=== PATIENT | female | born 1965 | race Hispanic/Latino ===

== ENCOUNTER 2019-04-07 09:43 | Emergency (ER) | payer SELFPAY ==
[2019-04-07 10:08] VITALS: BP 110/66; PULSE 76; RESP 16; TEMP 37.1; O2SAT 99
--- NOTE | 2019-04-07 11:07 | ED.GENADULT ---
HPI - General Adult General Chief complaint: Upper Respiratory Infection Stated complaint: Sore Throat/Fever/SOB Time Seen by Provider: 04/07/19 11:07 Source: patient and RN notes reviewed Mode of arrival: ambulatory Limitations: no limitations History of Present Illness HPI narrative: 53-year-old female complains of upper respiratory infection, facial congestion, and facial pain cough, and intermittent dyspnea with coughing episodes for the past 2 weeks. Increase symptoms over the past 4-5 days with tactile fever, sore throat, and RT ear pain. Nyquil without relief. No facial swelling. Dry cough, intermittent dyspnea with coughing episodes, intermittent productive cough (yellow phlegm). Rhinorrhea and nasal congestion. Sore throat. Pain bilateral. No high fevers, drooling, neck or throat swelling. No ear drainage, itching, tinnitus, or trauma. No chest pain. Exacerbation factors consists of current work environment per Johanna. Denies nausea, vomiting, and abdominal pain. Tolerating liquids well. Johanna denies being , Postmenopausal. Some parts of this dictation were generated by voice recognition software and may contain typographical and/or grammatical inaccuracies. Related Data Allergies Allergy/AdvReac Type Severity Reaction Status Date / Time No Known Allergies Allergy Verified 11/14/18 21:19 Review of Systems Review of Systems: Narrative: CONSTITUTIONAL: Compains tactile fever. Denies chills, sweats. EYES: Denies visual changes, redness, discharge. ENT: Complains of rhinorrhea, congestion, facial congestion and pressure, sore throat, RT otalgia. CARDIOVASCULAR: Denies chest pain, palpitations, edema. RESPIRATORY: Denies wheezing. Complains of dry cough, intermittent dyspnea with coughing episodes, intermittent productive cough. GASTROINTESTINAL: Denies abdominal pain, nausea, vomiting, diarrhea. GENITOURINARY: Denies dysuria, hematuria, abnormal discharge. SKIN: Denies rash or itching. MUSCULOSKELETAL: Denies acute back pain, joint pain, or myalgia. NEUROLOGIC: Denies numbness or focal weakness. PSYCHIATRIC: Denies anxiety or depression. All systems reviewed & are unremarkable except as noted in HPI and below. FORMERLY [facility], [facility] Social History Social History Smoking status: Never smoker Second hand tobacco smoke exposure: No Alcohol intake: never Substance use: never Gender identity (if verbalized by the patient): Female Comments At time of signature, agree with nurse past medical, surgical, social, and family history. There is no relevant family history pertinent to the presenting complaint. Exam Narrative: Exam Narrative: GENERAL: This is a well-nourished, well-developed patient, in no apparent distress. Talks in full sentences and ambulates with steady gait without dyspnea. HEAD: normocephalic, atraumatic. EYES: PERRL. Sclera clear/white. Vision is grossly intact. EARS: External ears normal, auditory canals clear and without drainage, LT TM normal without perforation. RT TM with mild effusion no erythema, bulging, drainage, or tenderness with manipulation. Hearing grossly intact. NOSE: External nose normal with no obvious nasal discharge, nares with moderate redness and enlarge turbinates, no rhinorrhea. SINUSES: Mild-moderate tenderness upon palpation to maxillary sinus. THROAT: Mucous membranes moist, posterior pharynx with PND, mild erythema, exudate, and normal tonsils. No drainage, no concern for Peritonsillar abscess. No drooling, trismus, or neck swelling. NECK: Neck supple, non-tender without lymphadenopathy, masses or thyromegaly. CARDIOVASCULAR: Regular rate and rhythm without murmurs, gallops, or rubs. RESPIRATORY: Clear to auscultation. Breath sounds equal bilaterally. No wheezes, rales, or rhonchi. GASTROINTESTINAL: Abdomen soft, non-tender, nondistended. Bowel sounds are active. No hepato-splenomegaly, or palpable masses. No guardi
== END 2019-04-07 11:22 | disposition home or self-care (01) ==
PROVIDERS: Emergency Provider Nurse Practitioner Family
DX: J01.00 Acute maxillary sinusitis, unspecified (principal)
CPT/HCPCS: 99213; G0463

== ENCOUNTER 2019-04-12 20:56 | Emergency (ER) | payer SELFPAY ==
--- NOTE | ~2019-04-12 | XR_ITS ---
EXAMINATION: XR chest 2V 04/12/2019 21:34 INDICATION: Reductive cough. Mid chest pain. PROCEDURE: Two-view chest COMPARISON: 11/14/2016 FINDINGS: The lungs are clear. The cardiomediastinal silhouette is within normal limits. There are no pleural effusions. There is no pneumothorax suspected. IMPRESSION: 1: NO ACUTE CARDIOPULMONARY DISEASE. Reviewed, dictated and finalized at location [facility]. [facility]
[2019-04-12 20:58] VITALS: BP 164/94; PULSE 74; RESP 16; TEMP 36.9; O2SAT 99
[2019-04-12 23:32] VITALS: BP 129/80; PULSE 62; RESP 16; O2SAT 97
[2019-04-12 23:38] VITALS: O2SAT 98
--- NOTE | 2019-04-12 23:39 | ED.GENADULT ---
HPI - General Adult General Chief complaint: Upper Respiratory Infection Stated complaint: cough/congestion Time Seen by Provider: 04/12/19 23:38 Source: patient and family (Daughter is translating) Mode of arrival: ambulatory Limitations: language barrier History of Present Illness HPI narrative: Patient came in today because she has a feeling of not being able to breathe at home. She has been being treated with amoxicillin and prednisone for an upper respiratory infection, she states that she has not taken the prednisone for the last 2 days because she felt like it was making her short of breath. Today she was just sitting on her couch watching TV when she suddenly became short of breath. 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 Onset (ago): day(s) Radiation: non-radiation Associated symptoms: cough Treatments prior to arrival: none Related Data Allergies Allergy/AdvReac Type Severity Reaction Status Date / Time No Known Allergies Allergy Verified 11/14/18 21:19 Review of Systems Review of Systems: All systems reviewed & are unremarkable except as noted in HPI and below PMFSH Past Medical History Medical History No significant past medical history Surgical History Surgical History No significant past surgical history Family History Family History Mother Asthma Social History Social History Smoking status: Never smoker Second hand tobacco smoke exposure: No Alcohol intake: never Substance use: never Gender identity (if verbalized by the patient): Female Exam Const: General: no acute distress and alert Orientation/consciousness: patient oriented x3 HENMT: Ears: TM's normal bilaterally General nose exam: Normal nares present Mouth: Yes moist mucous membranes Eyes: Conjunctivae: conjunctivae normal Pupils: Equal, round and reactive pupils present Resp: Effort & Inspection: normal respiratory effort Auscultation: clear to auscultation bilaterally and diminished lung sounds bilateral Cardio: Rate: regular rate Rhythm: regular rhythm GI: GI Palp: Yes Soft to palpation Skin: General skin exam: normal color Rashes: no rashes Extrem: General: normal to inspection Psych: Mental Status: mental status grossly normal Course Course Emergency Course: Patient feels much better after getting the albuterol treatment. Recommended that she can stop the steroids that she has been treated for 5 days. Continue the antibiotics as prescribed to complete the course. Also recommend that she try to wear a mask when she is working to protect her from the dust. Vital Signs Vital signs: Vital Signs Temperature 36.9 C 04/12/19 20:58 Pulse Rate 74 04/12/19 20:58 Respiratory Rate 16 04/12/19 20:58 Blood Pressure 164/94 H 04/12/19 20:58 Pulse Oximetry 99 04/12/19 20:58 Temperature 36.9 C 04/12/19 20:58 Pulse Rate 62 04/12/19 23:32 Respiratory Rate 16 04/12/19 23:32 Blood Pressure 129/80 04/12/19 23:32 Pulse Oximetry 97 04/12/19 23:32 Medical Decision Making Vital Signs Vital Signs: Vital Signs Temperature 36.9 C 04/12/19 20:58 Pulse Rate 74 04/12/19 20:58 Respiratory Rate 16 04/12/19 20:58 Blood Pressure 164/94 H 04/12/19 20:58 Pulse Oximetry 99 04/12/19 20:58 Temperature 36.9 C 04/12/19 20:58 Pulse Rate 62 04/12/19 23:32 Respiratory Rate 16 04/12/19 23:32 Blood Pressure 129/80 04/12/19 23:32 Pulse Oximetry 97 04/12/19 23:32 Lab Data Labs: Influenza A Screen Negative Reference Range: Negative Influenza B Screen Negative Reference Range: Negative Strep Screen Presum
--- NOTE | 2019-04-12 23:45 | PC.NURSE ---
Pt states she thinks the medication she started from urgent care is making her S.O.B.
[2019-04-13 00:27] VITALS: PULSE 74; RESP 16
[2019-04-13] MEDS: ALBUTEROL SULFATE NEB 2.5 MG/3 ML INH INHALATION (00:27)
[2019-04-13 00:34] VITALS: PULSE 69; RESP 20
[2019-04-13 01:48] VITALS: BP 116/81; PULSE 68; RESP 12; O2SAT 98
== END 2019-04-13 01:45 | disposition home or self-care (01) ==
PROVIDERS: Emergency Provider Emergency Medicine
DX: J06.9 Acute upper respiratory infection, unspecified (principal)
CPT/HCPCS: 71046; 87081; 87804; 87880; 94640; 99283

== ENCOUNTER 2019-09-25 20:58 | Emergency (ER) | payer SELFPAY ==
[2019-09-25 21:01] VITALS: BP 147/90; PULSE 74; RESP 16; TEMP 36.8; O2SAT 100
[2019-09-25 21:59] VITALS: BP 142/92; PULSE 81; RESP 18; TEMP 36.6; O2SAT 97
--- NOTE | 2019-09-25 22:06 | ED.EAR ---
HPI - Ear Problem General Chief complaint: Ear Stated complaint: R EAR PAIN Time Seen by Provider: 09/25/19 21:52 Source: RN notes reviewed History of Present Illness HPI Narrative: Patient presents emergency department from home for right ear pain. Patient states pain began yesterday. The pain is located in the right ear and radiates into the right side of the face. She denies any fevers or chills rhinorrhea sore throat or any other symptoms. States she has been using [id number] eardrops with minimal relief and took Tylenol earlier today. Related Data Allergies Allergy/AdvReac Type Severity Reaction Status Date / Time No Known Allergies Allergy Verified 09/25/19 21:56 Review of Systems Review of Systems: Narrative: Gen.: Denies fevers or chills Eyes: Denies eye pain or visual change ENT: See HPI Respiratory: Denies shortness of breath or cough CV: Denies chest pain or palpitations GI: Denies abdominal pain nausea, emesis Musculoskeletal: Denies back pain or muscle pain Neuro: Denies numbness, tingling, weakness or focal weakness Skin: Denies rash Except as documented, all other systems reviewed and negative [facility] Past Medical History Medical History No significant past medical history Social History Social History Smoking status: Never smoker Second hand tobacco smoke exposure: No Alcohol intake: never Substance use: never Gender identity (if verbalized by the patient): Female Exam Narrative: Exam Narrative: APPEARANCE: No acute distress, nontoxic, resting in bed EYES: EOMI HEENT: Normocephalic, atraumatic, left TM is normal right TM is erythematous, there is no swelling of the ear canal mild tenderness with speculum exam there is no tenderness over the face nares patent oromucosa moist erythematous a posterior pharynx, no overlying rash RESPIRATORY: No respiratory distress Clear to auscultation bilaterally with no rhonchi wheezing or rales. CARDIOVASCULAR: Regular rate and rhythm without murmurs rubs or gallops. ABDOMINAL: Soft, nontender, MUSCULOSKELETAl: Moves all extremities. No clubbing, cyanosis or edema. NEURO: Awake and alert. Following commands, speech normal, no focal deficits SKIN:: Warm, dry. No rashes lesions or abrasions PSYCHIATRIC: Normal affect/mood, Course Course Emergency Course: Discussed with patient results of workup and diagnosis. Discussed need for follow-up with primary care, proper use of medication, and reasons to return to the emergency department. Patient understands and agrees to current treatment plan Vital Signs Vital signs: Vital Signs Temperature 98.3 F 09/25/19 21:01 Pulse Rate 74 09/25/19 21:01 Respiratory Rate 16 09/25/19 21:01 Blood Pressure 147/90 H 09/25/19 21:01 Pulse Oximetry 100 09/25/19 21:01 Temperature 97.8 F 09/25/19 21:59 Pulse Rate 81 09/25/19 21:59 Respiratory Rate 18 09/25/19 21:59 Blood Pressure 142/92 H 09/25/19 21:59 Pulse Oximetry 97 09/25/19 21:59 Medical Decision Making Vital Signs Vital Signs: Vital Signs Temperature 98.3 F 09/25/19 21:01 Pulse Rate 74 09/25/19 21:01 Respiratory Rate 16 09/25/19 21:01 Blood Pressure 147/90 H 09/25/19 21:01 Pulse Oximetry 100 09/25/19 21:01 Temperature 97.8 F 09/25/19 21:59 Pulse Rate 81 09/25/19 21:59 Respiratory Rate 18 09/25/19 21:59 Blood Pressure 142/92 H 09/25/19 21:59 Pulse Oximetry 97 09/25/19 21:59 Discharge Plan Discharge Clinical Impression: Acute right otitis media Patient Disposition: Home, Self-Care Condition: Stable Instructions: Antibiotic Form, Ear Infection (ED) Additional Instructions: Return for increasing pain, fever or any other symptoms of concern Prescriptions: New ibuprofen [IBU] 600 mg tablet 600 mg PO Q6H PRN (Reason: pain) Qty: 20 RF: 0 amoxicillin-pot c
[2019-09-25] MEDS: IBUPROFEN 600 MG TABLET PO (22:09)
[2019-09-25] MEDS: AMOXICILLIN/CLAVULANATE K 875-125 MG TAB 1 TABLET PO (22:09)
== END 2019-09-25 22:24 | disposition home or self-care (01) ==
PROVIDERS: Emergency Provider Emergency Medicine
DX: H66.91 Otitis media, unspecified, right ear (principal)
CPT/HCPCS: 99283; A9270

== ENCOUNTER 2019-09-27 15:39 | Emergency (ER) | payer SELFPAY ==
[2019-09-27 15:56] VITALS: BP 152/87; PULSE 74; RESP 16; TEMP 36.6; O2SAT 100
--- NOTE | 2019-09-27 16:14 | ED.GENADULT ---
HPI - General Adult General Chief complaint: Ear Stated complaint: Ear pain Time Seen by Provider: 09/27/19 16:14 Source: patient Mode of arrival: ambulatory Limitations: no limitations History of Present Illness HPI narrative: 53-year-old female patient presents to the [facility] with complaints of right-sided facial pain. Patient states she was seen in the [place] emergency department on Friday for an ear infection was given a prescription for Augmentin. Patient states that the pain continues to worsen and now she feels like the right side of her face is very hard. 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 Patient denies any injury or falling that she is aware of. Denies any weakness of one side of the body or the other. Related Data Allergies Allergy/AdvReac Type Severity Reaction Status Date / Time No Known Allergies Allergy Verified 09/27/19 16:28 Review of Systems Review of Systems: Narrative: CONSTITUTIONAL: Denies fever, chills, or sweats. EYES: Denies visual changes, redness, or discharge. ENT: Denies rhinorrhea, congestion, sore throat, or otalgia. Positive right-sided facial pain and right ear pain CARDIOVASCULAR: Denies chest pain, palpitations, or edema. RESPIRATORY: Denies cough or dyspnea. GASTROINTESTINAL: Denies abdominal pain, nausea, vomiting, or diarrhea. GENITOURINARY: Denies dysuria or hematuria. SKIN: Denies rash or itching. MUSCULOSKELETAL: Denies back pain, joint pain, or myalgia. NEUROLOGIC: Denies headache, numbness, or weakness. PSYCHIATRIC: Denies anxiety or depression. FORMERLY [facility] Past Medical History Medical History (Updated 09/27/19 @ 16:29 by ASHLEE Bear) Hernandez's palsy Left side No significant past medical history Surgical History Surgical History No significant past surgical history Family History Family History Mother Asthma Social History Social History Smoking status: Never smoker Second hand tobacco smoke exposure: No Alcohol intake: never Substance use: never Gender identity (if verbalized by the patient): Female Comments At the time of my signature I agree with nursing past medical history, surgical, social, and family history. There is no relevant family history pertinent to the presenting complaint. Exam Narrative: Exam Narrative: GENERAL: Well-appearing, well-nourished, and in no acute distress. HEAD: Normocephalic, atraumatic. EYES: PERRLA and EOM intact without limitation or complaint of pain, no periorbital soft tissue swelling ,no erythema, warmth or tenderness noted, no obvious deformity. No crusting or swelling.no tearing or draining.No photophobia. No nystagmus No FB or lesion on lid eversion. Corneas grossly clear, no obvious FB or hyphens/hypopyon. No injection to sclera. Lids and lashes clear. Patient unable to lift the right eyebrow and unable to close the right eye ENT: Nares clear, no rhinorrhea or epistaxis. Mucous membranes moist. Posterior pharynx with no erythema, tonsil enlargement, exudates or lesions present. No obvious erythema to bilateral TMs. Patient unable to raise the corner of the right side of the mouth. NECK: Supple. No lymphadenopathy CHEST: Clear to auscultation. No respiratory distress. HEART: Regular rate and rhythm. No murmur heard. Normal peripheral pulses. ABDOMEN: Soft, nontender, nondistended, normal active bowel sounds. EXTREMITIES: Normal range of motion. No edema. SKIN: Warm, dry, no rash. NEURO: Alert and oriented x4, GCS 15. Patient has right-sided facial droop as well as unable to close the right eye or raise the right eyebrow. Normal muscle strength and tone. Normal deep tendon reflexes. Negative Babinski, normal finger to nose coordination he had normal heel to mackenzie glide. Speech is clear. Normal gait. Negativ
== END 2019-09-27 16:25 | disposition short-term general hospital (02) ==
PROVIDERS: Emergency Provider Nurse Practitioner Family
DX: G51.0 Bell's palsy (principal)
CPT/HCPCS: 99212; G0463

== ENCOUNTER 2019-09-27 16:42 | Emergency (ER) | payer SELFPAY ==
[2019-09-27 16:48] VITALS: BP 161/93; PULSE 93; RESP 16; TEMP 36.2; O2SAT 100
--- NOTE | 2019-09-27 17:55 | ED.GENADULT ---
HPI - General Adult General Chief complaint: Unspecified Stated complaint: rt facial paralysis and pain Time Seen by Provider: 09/27/19 17:06 History of Present Illness HPI narrative: Patient is a 53-year-old Syriac-speaking female who presents the ER with her daughter for evaluation. Several days ago patient was diagnosed with a ear infection of the right ear. She has been on Augmentin. Since then she has developed paralysis of her right face including her forehead/eyelids, mouth. Her ear pain is gone away but she started having pain along the sternocleidomastoid of her mid cervical region. No range of motion difficulty. No pain over the mastoid. No redness or swelling. No difficulty hearing. Denies numbness or tingling to the face. No new rash. 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 Related Data Allergies Allergy/AdvReac Type Severity Reaction Status Date / Time No Known Allergies Allergy Verified 09/27/19 16:54 Review of Systems Constitutional: Constitutional: Denies chills and Denies fever(s) ENT: Denies nasal congestion and Denies sore throat Comments: No change in hearing or ear pain mild right neck discomfort PMFSH Past Medical History Medical History (Updated 09/27/19 @ 18:00 by Manjit Parnell MD) Hernandez's palsy Left side No significant past medical history Surgical History Surgical History No significant past surgical history Social History Social History Smoking status: Never smoker Second hand tobacco smoke exposure: No Alcohol intake: never Substance use: never Gender identity (if verbalized by the patient): Female Exam Narrative: Exam Narrative: GENERAL: Well-appearing, well-nourished, and in no acute distress. HEAD: Normocephalic, atraumatic. EYES: PERRL and EOMI. ENT: Mucous membranes moist. Right facial paralysis of the forehead eyelids, and right mouth/cheek. Unable to fully close eyes, lift eyebrows, or smile. Tympanic membranes normal bilaterally. Neck: Full range of motion, no large palpable lymphadenopathy to anterior cervical chain or posterior auricular regions. There is mild tenderness of the right sternocleidomastoid without any evidence of swelling or redness. EXTREMITIES: Normal range of motion. No edema. SKIN: Warm, dry, no rash. NEURO: Alert and oriented x3. PSYCH: Normal mood and affect. Course Course Emergency Course: Suspect neck discomfort is related to deeper lymphadenopathy reactivity that is causing Hernandez's palsy. Will start on prednisone, continue Augmentin, will also placed on valacyclovir. Discussed need for eye protection and eye lubrication as well. Patient verbalized understanding.. Vital Signs Vital signs: Vital Signs Temperature 97.2 F L 09/27/19 16:48 Pulse Rate 93 09/27/19 16:48 Respiratory Rate 16 09/27/19 16:48 Blood Pressure 161/93 H 09/27/19 16:48 Pulse Oximetry 100 09/27/19 16:48 Temperature 97.2 F L 09/27/19 16:48 Pulse Rate 93 09/27/19 16:48 Respiratory Rate 16 09/27/19 16:48 Blood Pressure 161/93 H 09/27/19 16:48 Pulse Oximetry 100 09/27/19 16:48 Medical Decision Making Vital Signs Vital Signs: Vital Signs Temperature 97.2 F L 09/27/19 16:48 Pulse Rate 93 09/27/19 16:48 Respiratory Rate 16 09/27/19 16:48 Blood Pressure 161/93 H 09/27/19 16:48 Pulse Oximetry 100 09/27/19 16:48 Temperature 97.2 F L 09/27/19 16:48 Pulse Rate 93 09/27/19 16:48 Respiratory Rate 16 09/27/19 16:48 Blood Pressure 161/93 H 09/27/19 16:48 Pulse Oximetry 100 09/27/19 16:48 Discharge Plan Discharge Clinical Impression: Hernandez's palsy Patient Disposition: Home, Self-Care Condition: Stable Instructions: Antibiotic Form, Hernandez Palsy (ED) Additional Instructions: Return the ER if you have worsening pain in your ear neck, you cannot breathe, y
[2019-09-27 18:32] VITALS: BP 138/78; PULSE 78; RESP 18; O2SAT 99
== END 2019-09-27 18:34 | disposition home or self-care (01) ==
PROVIDERS: Emergency Provider Emergency Medicine
DX: G51.0 Bell's palsy (principal)
CPT/HCPCS: 99283

== ENCOUNTER 2020-09-09 16:16 | Emergency (ER) | payer SELFPAY ==
[2020-09-09 16:23] VITALS: BP 114/73; PULSE 75; RESP 16; TEMP 36.6; O2SAT 99
--- NOTE | 2020-09-09 16:29 | ED.EAR ---
HPI - Ear Problem General Chief complaint: Ear Stated complaint: ITCHY EAR Time Seen by Provider: 09/09/20 16:29 Source: patient and RN notes reviewed Mode of arrival: ambulatory Limitations: no limitations History of Present Illness HPI Narrative: 54-year-old female presents to the [facility] with complaints of right ear itchiness and discomfort. States a week ago she was swimming in [employer] and started having issues with both ears 2 days later and started using swimmers ear eardrops which made the left one better however the right one is itchy. Denies any sinus issues. No fevers. No chest pain or shortness of breath. No abdominal pain. Using daughter for translation however patient does understand. Related Data Allergies Allergy/AdvReac Type Severity Reaction Status Date / Time No Known Allergies Allergy Verified 09/09/20 16:35 Review of Systems Review of Systems: All systems reviewed & are unremarkable except as noted in HPI and below Constitutional: Constitutional: Reports no additional constitutional complaints, Denies chills and Denies fever(s) Eyes: Eyes: Reports no additional eye complaints ENT: Reports as per HPI Comments: Right-sided itchy ear, left is better Cardiovascular: Cardiovascular: Reports no additional cardiovascular complaints and Denies chest pain Respiratory: Respiratory: Reports no additional respiratory complaints, Denies cough and Denies dyspnea Musculoskeletal: Musculoskeletal: Reports no additional musculoskeletal complaints Integumentary/Breasts: Skin/Breast: Reports system reviewed and no additional complaints, except as docu Neurologic: Reports system reviewed and no additional complaints, except as documented Psychiatric: Psychiatric: Reports no additional psychiatric complaints Allergic/Immunologic: Allergic/Immunologic: Reports no additional allergic/immunologic complaints [facility] Past Medical History Medical History (Updated 09/09/20 @ 16:36 by Selene Gates) Hernandez's palsy Left side No significant past medical history Surgical History Surgical History No significant past surgical history Family History Family History Mother Asthma Social History Social History Smoking status: Never smoker Second hand tobacco smoke exposure: No Alcohol intake: never Substance use: never Gender identity (if verbalized by the patient): Female Comments At the time of my signature, I reviewed and agree with the nursing past medical, surgical, social, and family history. There is no relevant family history pertinent to the patient complaint. Exam Const: General: no acute distress and alert Nutritional Appearance: well nourished Orientation/consciousness: patient oriented x3 Limitations: no limitations HENMT: Ears: hearing grossly normal bilaterally, external ears normal, TM's normal bilaterally, Abnormal EAC present erythema on the left and EAC tenderness on the left and no periauricular adenopathy General nose exam: Normal external nose present, Normal nares present and Normal nasal mucous membranes and turbinates present Face and sinus: normal facial exam and sinuses nontender Mouth: Yes Normal oral and palatal mucosa present Eyes: Conjunctivae: conjunctivae normal Pupils: Equal, round and reactive pupils present Neck: Neck: normal visual inspection, no lymphadenopathy and no meningeal signs Chest: Chest palpation & inspection: normal inspection of the chest Resp: Effort & Inspection: normal respiratory effort Auscultation: clear to auscultation bilaterally Cardio: Rate: regular rate Rhythm: regular rhythm Back/Spine/Pelvis: Back: no CVA tenderness Skin: General skin exam: normal color Rashes: no rashes Wounds: no wounds Neuro: General: patient oriented x3, moves all extremities, no meningeal signs
== END 2020-09-09 16:41 | disposition home or self-care (01) ==
PROVIDERS: Emergency Provider Nurse Practitioner
DX: H60.331 Swimmer's ear, right ear (principal)
CPT/HCPCS: 99213; G0463

== ENCOUNTER 2021-05-21 11:06 | Emergency (ER) | payer SELFPAY ==
--- NOTE | 2021-05-21 11:14 | ED.URI ---
HPI - URI/Sore Throat General Chief Complaint: Upper Respiratory Infection Stated Complaint: Congestion Time Seen by Provider: 05/21/21 11:14 Source: patient, family, RN notes reviewed and old records reviewed Mode of arrival: ambulatory Limitations: no limitations and language barrier (Offered Bulgarian speaking park interpreter, patient declined wanted to use family member at bedside) History of Present Illness HPI Narrative: 55-year-old female presents to the [facility] with complaints of cough, congestion for approximately 1 week. Reports feeling febrile but did not take her temperature the first 2 days. Has had a productive cough with green phlegm. Reports taking a Covid test at home which she reports was negative. Denies chest pain or abdominal pain. No treatment prior to arrival MD elicited complaint: cough Related Data Allergies Allergy/AdvReac Type Severity Reaction Status Date / Time No Known Allergies Allergy Verified 05/21/21 11:10 Review of Systems Review of Systems: All systems reviewed & are unremarkable except as noted in HPI and below Constitutional: Constitutional: Reports as per HPI, Denies chills, Reports fever(s) (Subjective a week ago) and Denies headache(s) Eyes: Eyes: Reports no additional eye complaints ENT: Reports as per HPI, Denies vertigo, Denies dizziness, Denies headache(s), Denies nasal congestion and Denies sore throat Cardiovascular: Cardiovascular: Reports no additional cardiovascular complaints, Denies chest pain, Denies syncope, Denies rapid heart rate and Denies dyspnea Respiratory: Respiratory: Reports as per HPI, Reports cough, Denies dyspnea and Denies wheezing Gastrointestinal: Gastrointestinal: Reports no additional gastrointestinal complaints, Denies abdominal pain, Denies diarrhea, Denies nausea and Denies vomiting Musculoskeletal: Musculoskeletal: Reports as per HPI, Reports myalgias and Denies numbness Integumentary/Breasts: Skin/Breast: Reports system reviewed and no additional complaints, except as docu Neurologic: Reports system reviewed and no additional complaints, except as documented, Denies vertigo, Denies dizziness, Denies syncope, Denies headache(s), Denies focal weakness and Denies numbness Psychiatric: Psychiatric: Reports no additional psychiatric complaints Allergic/Immunologic: Allergic/Immunologic: Reports no additional allergic/immunologic complaints and Denies wheezing PMFSH Past Medical History Medical History Hernandez's palsy Left side No significant past medical history Surgical History Surgical History No significant past surgical history Family History Family History Mother Asthma Social History Social History Smoking status: Never smoker Second hand tobacco smoke exposure: No Alcohol intake: never Substance use: never Gender identity (if verbalized by the patient): Female Comments At the time of my signature, I reviewed and agree with the nursing past medical, surgical, social, and family history. There is no relevant family history pertinent to the patient complaint. Exam Const: General: cooperative, healthy appearing, no acute distress, well developed and alert Nutritional Appearance: well nourished Orientation/consciousness: patient oriented x3 Limitations: no limitations HENMT: Head: normal to inspection Ears: external ears normal, TM's normal bilaterally and EAC's normal General nose exam: Normal external nose present, Normal nasal mucous membranes and turbinates present and No nasal discharge present Face and sinus: normal facial exam Throat: posterior oropharynx normal, uvula midline and no uvular edema Eyes: Conjunctivae: conjunctivae normal Pupils: Equal, round and reactive pupils present Neck: Neck: murphy
[2021-05-21 11:16] VITALS: BP 127/85; PULSE 69; RESP 20; TEMP 36.6; O2SAT 99
== END 2021-05-21 11:31 | disposition home or self-care (01) ==
PROVIDERS: Emergency Provider Nurse Practitioner
DX: J40 Bronchitis, not specified as acute or chronic (principal)
CPT/HCPCS: 99213; G0463

== ENCOUNTER 2022-01-12 14:28 | Emergency (ER) | payer SELFPAY ==
[2022-01-12 16:28] VITALS: BP 120/84; PULSE 93; RESP 18; TEMP 36.6; O2SAT 100
--- NOTE | 2022-01-12 16:45 | ED.GENADULT ---
HPI - General Adult General Chief complaint: Upper Respiratory Infection Stated complaint: fever Time Seen by Provider: 01/12/22 16:46 Source: patient Mode of arrival: ambulatory Limitations: no limitations History of Present Illness HPI narrative: 56-year-old female patient presents to [facility] with complaints of flu-like symptoms for the past 2 days. Patient states she came today because she spiked a fever this morning that she could not get down. Patient does not know how high the fever was because she did not have a thermometer but states she felt very hot and had chills. Patient is not up-to-date on COVID vaccines and did not get a flu shot this year. Denies any chest pain or shortness of breath. Denies any abdominal pain, nausea, vomiting or diarrhea. Patient states she has been taking [id number] NyQuil and ibuprofen for her symptoms. Related Data Home Medications Medication Instructions Recorded Confirmed No Home Medications 01/12/22 01/12/22 Allergies Allergy/AdvReac Type Severity Reaction Status Date / Time No Known Allergies Allergy Verified 01/12/22 16:15 Review of Systems Review of Systems: CONSTITUTIONAL: Positive fever, chills, denies sweats. EYES: Denies visual changes, redness, or discharge. ENT: Positive rhinorrhea, congestion, denies sore throat, positive otalgia. CARDIOVASCULAR: Denies chest pain, palpitations, or edema. RESPIRATORY: Present cough denies dyspnea. GASTROINTESTINAL: Denies abdominal pain, nausea, vomiting, or diarrhea. GENITOURINARY: Denies dysuria or hematuria. SKIN: Denies rash or itching. MUSCULOSKELETAL: Denies back pain, joint pain, or myalgia. NEUROLOGIC: Positive headache, denies numbness, or weakness. PSYCHIATRIC: Denies anxiety or depression. [facility] Past Medical History Medical History Hernandez's palsy Left side No significant past medical history Surgical History Surgical History No significant past surgical history Family History Family History Mother Asthma Social History Social History Smoking status: Never smoker Second hand tobacco smoke exposure: No Alcohol intake: never Substance use: never Gender identity (if verbalized by the patient): Female Comments At the time of my signature I agree with nursing past medical history, surgical, social, and family history. There is no relevant family history pertinent to the presenting complaint. Exam Narrative: GENERAL: ill-appearing, well-nourished, and in no acute distress. HEAD: Normocephalic, atraumatic. EYES: PERRLA and EOMI. ENT: With erythema and edema noted bilaterally, no rhinorrhea or epistaxis. Mucous membranes moist. Posterior pharynx with no erythema, tonsillectomy, exudates or lesions present. NECK: Supple. No lymphadenopathy CHEST: Clear to auscultation. No respiratory distress. Patient able to talk in complete sentences. HEART: Regular rate and rhythm. No murmur heard. Normal peripheral pulses. ABDOMEN: Soft, nontender, nondistended, normal active bowel sounds. EXTREMITIES: Normal range of motion. No edema. SKIN: Warm, dry, no rash. NEURO: No focal deficits. Alert and oriented x3. Course Course Level of Care: Express Care Visit Vital Signs Vital signs: Vital Signs Temperature 36.6 C 01/12/22 16:28 Pulse Rate 93 01/12/22 16:28 Respiratory Rate 18 01/12/22 16:28 Blood Pressure 120/84 01/12/22 16:28 Pulse Oximetry 100 01/12/22 16:28 Oxygen Delivery Room Air 01/12/22 16:28 Temperature 36.6 C 01/12/22 16:28 Pulse Rate 93 01/12/22 16:28 Respiratory Rate 18 01/12/22 16:28 Blood Pressure 120/84 01/12/22 16:28 Pulse Oximetry 100 01/12/22 16:28 Oxygen Delivery Room Air 01/12/22 16:28 Vital signs reviewed M
== END 2022-01-12 17:28 | disposition home or self-care (01) ==
PROVIDERS: Emergency Provider Nurse Practitioner Family
DX: U07.1 COVID-19 (principal)
CPT/HCPCS: 87081; 87426; 87804; 87880; 99213; C9803; G0463

== ENCOUNTER 2022-09-24 10:57 | Outpatient (CLI) | payer MEDICAID, SELFPAY ==
--- NOTE | ~2022-09-24 | XR_ITS ---
Left ankle Technique: AP, oblique, and lateral views were obtained. Clinical History: Pain Findings: No acute fracture or dislocation is seen. Osseous alignment is anatomic. Ankle mortise and other visualized joint spaces are preserved. Soft tissues are otherwise unremarkable. Impression: Unremarkable left ankle. Reviewed, dictated and finalized at location . Impression: Unremarkable left ankle.
== END 2022-09-24 10:58 | disposition home or self-care (01) ==
PROVIDERS: PCP Physician Assistant; Visit Provider Physician Assistant
DX: M25.572 Pain in left ankle and joints of left foot (principal)
CPT/HCPCS: 73610

== ENCOUNTER → 2022-11-08 11:00 | Outpatient (CLI) | payer MEDICAID, SELFPAY ==
--- NOTE | ~2022-11-08 | MM_ITS ---
EXAMINATION: MM screening matthew BI w jack HISTORY: Screening mammogram TECHNIQUE: Craniocaudal and mediolateral oblique 3-D tomosynthesis images were obtained and synthetic 2-D images were generated. CAD analysis was submitted and interpreted. COMPARISON: 07/31/2017 bilateral screening mammogram BREAST PARENCHYMAL COMPOSITION: There are scattered areas of fibroglandular density. FINDINGS: There is no evidence of suspicious mass, calcification, or architectural distortion to sugg est malignancy in either breast. There has been no suspicious interval change. IMPRESSION: 1. No mammographic evidence of malignancy. 2. Recommend routine screening mammography in one year. BI-RADS Category 1: Negative Reviewed, dictated and finalized at location A.
== END ==
PROVIDERS: PCP Physician Assistant; Visit Provider Physician Assistant
DX: Z12.31 Encounter for screening mammogram for malignant neoplasm of breast (principal)
CPT/HCPCS: 77063; 77067

== ENCOUNTER 2023-02-21 12:46 | Emergency (ER) | payer MEDICAID, SELFPAY ==
[2023-02-21 13:23] VITALS: BP 122/81; PULSE 77; RESP 16; TEMP 37.1; O2SAT 99
--- NOTE | 2023-02-21 14:47 | ED.URI ---
HPI - URI/Sore Throat General Chief Complaint: Upper Respiratory Infection Stated Complaint: cough,fever,chills,runny nose Time Seen by Provider: 02/21/23 14:35 Source: patient and RN notes reviewed Mode of arrival: ambulatory Limitations: no limitations History of Present Illness HPI Narrative: 57-year-old female presented for complaint of sinus congestion intermittently over the past several months. States symptoms are now causing runny nose and forehead pressure. Cough is mild, endorses sore throat and itchy ears. Denies shortness of breath, wheezing, nausea, vomiting, diarrhea, fevers or chills. She has not been taking anything [id number] for symptoms. MD elicited complaint: cough Related Data Allergies Allergy/AdvReac Type Severity Reaction Status Date / Time No Known Allergies Allergy Verified 02/21/23 14:00 Review of Systems Review of Systems: Per HPI [facility] Past Medical History Medical History Hernandez's palsy Left side No significant past medical history Surgical History Surgical History No significant past surgical history Family History Family History Mother Asthma Social History Social History Smoking status: Never smoker Second hand tobacco smoke exposure: No Alcohol intake: never Substance use: never Living arrangements: with family Occupation/Education: occupation Gender identity (if verbalized by the patient): Female Exam Narrative: GENERAL: mildly Ill-appearing, nontoxic no acute distress. EYES: PERRLA, conjunctivae clear ENT: Mucous membranes moist. nasal congestion. TMs pearly scott with dull light reflex bilaterally; no tragal tenderness. Oropharynx not erythematous without lesions or exudate, no drooling, no hoarseness, no trismus, uvula midline. No tripod positioning, muffled voice, soft palate or pharyngeal wall bulging NECK: Supple. No lymphadenopathy CHEST: Clear to auscultation, breath sounds equal. No wheezing, rhonchi, rales, or stridor. No respiratory distress, speaks in full sentences. HEART: Regular rate and rhythm. No murmur heard. SKIN: Warm, dry, no rash. NEURO: Alert and oriented x3. PSYCH: Normal mood and affect Course Course Emergency Course: Patient is aware of diagnosis, understands and agrees to treatment plan. Anticipatory guidance given. Patient agrees to follow-up as directed and is aware of reasons to seek care at the emergency department. Portions of this record may have been created with voice recognition software Level of Care: Express Care Visit Vital Signs Vital signs: Vital Signs Temperature 98.7 F 02/21/23 13:23 Pulse Rate 77 02/21/23 13:23 Respiratory Rate 16 02/21/23 13:23 Blood Pressure 122/81 02/21/23 13:23 Pulse Oximetry 99 02/21/23 13:23 Oxygen Delivery Room Air 02/21/23 13:23 Temperature 98.7 F 02/21/23 13:23 Pulse Rate 77 02/21/23 13:23 Respiratory Rate 16 02/21/23 13:23 Blood Pressure 122/81 02/21/23 13:23 Pulse Oximetry 99 02/21/23 13:23 Oxygen Delivery Room Air 02/21/23 13:23 reviewed MDM - URI/Sore Throat MDM Narrative Medical decision making narrative: Discussed physical exam findings. Advised supportive measures and signs/symptoms to go to the ER. Pt is appropriate for outpt treatment and f/u. Differential Diagnosis Differential diagnosis: Likely upper respiratory infection, sinusitis and viral infection Discharge Plan Discharge Clinical Impression: Upper respiratory infection Patient Disposition: Home, Self-Care Condition: Stable Instructions: Antibiotic Form, Rhinosinusitis (ED) Additional Instructions: take antibiotic as directed Recommend Flonase spray and Zyrtec (or Claritin/Catalina) over the counter Cou
== END 2023-02-21 14:52 | disposition home or self-care (01) ==
PROVIDERS: Emergency Provider Nurse Practitioner Family; PCP Physician Assistant
DX: J06.9 Acute upper respiratory infection, unspecified (principal)
CPT/HCPCS: 99213; G0463

== ENCOUNTER 2024-08-05 15:39 | Outpatient (CLI) | payer OTHER, SELFPAY ==
--- NOTE | ~2024-08-05 | MM_ITS ---
EXAMINATION: MM screening matthew BI w jack HISTORY: Screening TECHNIQUE: Craniocaudal and mediolateral oblique 3-D tomosynthesis images were obtained and synthetic 2-D images were generated. CAD analysis was submitted and interpreted. COMPARISON: Comparison to multiple prior studies sequentially, with oldest reviewed study dated 10/10. BREAST PARENCHYMAL COMPOSITION: Not dense: There are scattered areas of fibroglandular density. FINDINGS: There is no evidence of suspicious mass, calcification, or architectural distortion to sugg est malignancy in either breast. There has been no suspicious interval change. IMPRESSION: 1. No mammographic evidence of malignancy. 2. Recommend routine screening mammography in one year. BI-RADS Category 1: Negative Reviewed, dictated and finalized at location B.
--- OUTSIDE RECORDS SUMMARY | 2024-08-05 15:59 | XMS_ITS | Data Portability ---
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 Discussed etiology of condition. Discussed surgical and conservative treatment with patient in detail. Follow up in 3 weeks [email or web address] Not available 09/25/2022 11:54:54 10/16/2022 10/16/2022 Patient examined and evaluated. Discussed etiology of condition. Discussed surgical and conservative treatment with patient in detail. Follow up in as needed [email or web address] Not available 10/16/2022 10:24:09 Plan of Treatment Reminders Order Date Submit Date Provider Last Modified By Organization Details Last Modified Time Details Appointments None recorde d. Lab unliste d lab - CBC with differe ntial/p latelet 2022 023 [email or web address] [facility] (Lab), [address], [place], [address], 3 09:53:40 iron + TIBC + ferriti n, serum 2022 023 [facility] (Lab), [address], [place], [address], 4 05:01:54 hepatic functio n panel, serum 2022 023 [facility] (Lab), [address], [place], [address], 4 05:01:54 Referral None recorde d. Procedures None recorde d. Surgeries None recorde d. Imaging US, elastog mary 2022 023 [facility] (Rad), [address] [place], [address], 4 05:01:24 US, liver 2022 023 [facility] (Rad), [address], [place], [address], 4 05:01:24 Medication Orders meloxic am 15 mg tablet 2022 023 [facility], [address] [place], [address], 5 14:22:07 Medrol (Edward) 4 mg tablets in a dose pack 2022 023 [facility], [facility] [place], [address], 5 14:21:57 Patient TargetsNo targets recorded. Patient Instructions Encounter Date Encounter Id Patient Instructions Last Modified By Organization Details Last Modified Time 09/25/2022 [id number] presbicia: instrucciones de cuidado - [presbyopia: care instructions] msafi Not available 09/25/2022 11:57:04 aprenda acerca d e la diabetes tipo 2 - [learning about type 2 diabetes] msafi Not available 09/25/2022 13:47:47 diabetes tipo 2: instrucciones de cuidado - [type 2 diabetes: care instructions] msafi Not available 09/25/2022 13:47:46 08/02/2024 [id number] mamograf a: sobre esta prueba - [mammogram: about this test] [email or web address] Not available 08/02/2024 14:44:47 I was present an d available in the clinic during the encounter. I discussed the patient's history, exam findings, and plan with the resident physician and agree with the assessment and plan as documented. Clem Raymundo MD [email or web address] Not available 08/02/2024 15:29:37 Reason for Referral None Reported. Results Created Date Observation Date Name Description Value Unit Range Abnormal Flag Note LastModifiedBy Organization Detail LastModifiedTime 09/06/1909/05/2022 LIVER PANEL (HEPA TIC FUNCT ION PANEL ) total protein 7.9 g/dL 6.7-8. 2 Not Available [facility] (Lab) [address] [place], [address], 09/05/2022 19:47:09/06/1909/05/2022 LIVER PANEL (HEPA TIC FUNCT ION PANEL ) albumin, serum 4.7 g/dL 3.5-5. 5 Not Available [facility] (Lab) [address] [facility], [place], [address], 09/05/2022 19:47:09 09/06/1909/05/2022 LIVER PANEL (HEPA TIC FUNCT ION PANEL ) bilt 0.9 mg/dL 0.0-1. 2 Not Available [facility] (Lab) [address] [facility], [place], [address], 09/05/2022 19:47:09 09/06/1909/05/2022 LIVER PANEL (HEPA TIC FUNCT ION PANEL ) bild 0.20 mg/dL 0.10-0 .50 Not Available [facility] (Lab) [address] [place], [address], 09/05/2022 19:47:09 09/06/1909/05/2022 LIVER PANEL (HEPA TIC FUNCT ION PANEL ) AST 45.5 U/L 10.0-4 2.0 high Not Available [facility] (Lab) [address] [place], [address], 09/05/2022 19:47:09/06/19 23 09/05/2022 LIVER PANEL (HEPA TIC FUNCT ION PANEL ) ALT 92.8 U/L 10.0-6 0.0 high Not Available [facility] (Lab) [address], [place], [address], 09/05/2022 19:47:09 09/06/19 23 09/05/2022 LIVER PANEL (HEPA TIC FUNCT ION PANEL ) alk phos 103.1 IU/L 42.0-1 21.0 Not Available [facility] (Lab) [address], [place], [address], 09/05/2022 19:47:09 09/06/19 23 09/05/2022 LIPAS E lip 40 U/L 7-60 Not Available [facility] (Lab) [address], [place], [address], 09/05/2022 19:47:11 09/06/19 23 09/05/2022 PROTH ROMBI N TIME (PT/I NR) PT 9.3 secon ds 9.1-11 .0 Not Available [facility] (Lab) [address], [place], [address], 09/05/2022 19:57:31 09/06/19 23 09/05/2022 PROTH ROMBI N TIME (PT/I NR) INR 0.9 0.4-2. 0 Not Available [facility] (Lab) [address], [place], [address], 09/05/2022 19:57:31 09/06/19 23 09/05/2022 PROTH ROMBI N TIME (PT/I NR) [email or web address] Please note Refere nce Range has change d Not Available [facility] (Lab) [address], [place], [address], 09/05/2022 19:57:31 09/06/19 23 09/06/2022 ACUTE HEPAT ITIS PANEL hep A Ab, IgM Negati ve negati ve Not Available [facility] (Lab) [address], [place], [address], 09/06/2022 07:17:21 09/06/19 23 09/06/2022 ACUTE HEPAT ITIS PANEL HBsAg screen Negati ve negati ve Not Available [facility] (Lab) [address] [place], [address], 09/06/2022 07:17:21 09/06/19 23 09/06/2022 ACUTE HEPAT ITIS PANEL hep B core Ab, IgM Negati ve negati ve Not Available [facility] (Lab) [address], [place], [address], 09/06/2022 07:17:21 09/06/19 23 09/06/2022 ACUTE HEPAT ITIS PANEL HCV Ab Non Reacti ve non reacti ve Not Available [facility] (Lab) [address] [facility], [place], [address], 09/06/2022 07:17:21 09/06/19 23 09/06/2022 ACUTE HEPAT ITIS PANEL interpretati on: SPRCS Not infec vonnie with HCV unles s early or acute infec tion is suspe cted (whic h may be delay ed in an immun ocomp romis ed indiv idual ), or other evide nce exist s to indic ate HCV infec tion. Not Available [facility] (Lab) [address], [place], [address], 09/06/2022 07:17:21 09/06/19 23 09/06/2022 IRON AND TIBC iron bind.cap.(TI BC) 351 ug/dL 250-45 0 Not Available [facility] (Lab) [address], [place], [address], 09/06/2022 15:12:27 09/06/19 23 09/06/2022 IRON AND TIBC UIBC 246 ug/dL 131-42 5 Not Available [facility] (Lab) [address], [place], [address], 09/06/2022 15:12:27 09/06/19 23 09/06/2022 IRON AND TIBC iron, serum 105 ug/dL 27-159 Not Available [facility] (Lab) [address] [facility], [place], [address], 09/06/2022 15:12:27 09/06/19 23 09/06/2022 IRON AND TIBC iron saturation 30 % 15-55 Not Available [facility] (Lab) [address] [facility], [place], [address], 09/06/2022 15:12:27 09/06/19 23 09/06/2022 GAMMA GLUTA MYL TRANS FERAS E GGT 17 IU/L 0-60 Not Available [facility] (Lab) [address] [facility], [place], [address], 09/06/2022 15:12:29 09/06/19 23 09/06/2022 MITOC HONDR IAL ANTIB RADU mitochondria l (M2) antibody <20.0 units 0.0-20 .0 Negat octaviano 0.0 - 20.0 Equiv ocal 20.1 - 24.9 Posit octaviano >24.9 . Mitoc hondr ial (M2) Antib odies are found in 90-96 % of patie nts with prima ry bilia ry cirrh osis. Not Available [facility] (Lab) [address] [facility], [place], [address], 09/06/2022 15:12:30 09/06/19 23 09/06/2022 CERUL OPLAS MIN ceruloplasmi n 26.6 mg/dL 19.0-3 9.0 Not Available [facility] (Lab) [address] [facility], [place], [address], 09/06/2022 15:12:31 09/06/19 23 09/06/2022 BETO TIN, SERUM ferritin, serum 401 NG/mL 15-150 high Not Available [facility] (Lab) [address] [facility], [place], [address], 09/06/2022 15:12:33 09/06/19 23 09/06/2022 LIVER -KIDN EY MICRO SOMAL ANTIB ODIES liver-kidney microsomal Ab 1.3 units 0.0-20 .0 Negat octaviano 0.0 - 20.0 Equiv ocal 20.1 - 24.9 Posit octaviano >24.9 . LKM type 1 antib odies are detec vonnie in patie nts with autoi mmune hepat itis type 2 and in up to 8% of patie nts with chron ic HCV infec tion. Not Available [facility] (Lab) [address] [place], [address], 09/06/2022 15:12:34 09/06/19 23 09/06/2022 ASMA ACTIN (SMOO TH MUSCL E) ANTIB RADU actin (smooth muscle) antibody 14 units 0-19 Negat octaviano 0 - 19 Weak posit octaviano 20 - 30 Moder ate to stron g posit octaviano >30 . Actin Antib odies are found in 52-85 % of patie nts with autoi mmune hepat itis or chron ic activ e hepat itis and in 22% of patie nts with prima ry bilia ry cirrh osis. Not Available [facility] (Lab) [address] [facility], [place], [address], 09/06/2022 15:12:35 09/06/19 23 09/06/2022 ALPHA -1-AN TITRY PSIN, SERUM [id number] trypsin, serum 146 mg/dL 101-18 7 Not Available [facility] (Lab) [address] [facility], [place], [address], 09/06/2022 15:12:35 09/06/19 23 09/06/2022 DARCY BY MULTI PLEX IMMUN OASSA Y WITH REFLE X DARCY direct Negati ve negati ve Not Available [facility] (Lab) [address] [place], [address], 09/06/2022 15:12:36 10/04/19 23 10/03/2022 COMPL ETE BLOOD COUNT AUTO DIFF white blood count 9.1 x10e3 /uL 3.4-10 .8 normal Not Available [facility] (Lab) [address] [place], [address], 10/07/2022 18:03:36 10/04/19 23 10/03/2022 COMPL ETE BLOOD COUNT AUTO DIFF red blood count 4.73 x10e6 /uL 3.77-5 .28 normal Not Available [facility] (Lab) [address], [place], [address], 10/07/2022 18:03:36 10/04/19 23 10/03/2022 COMPL ETE BLOOD COUNT AUTO DIFF hemoglobin 14.6 g/dL 11.1-1 5.9 normal Not Available [facility] (Lab) [address], [place], [address], 10/07/2022 18:03:36 10/04/19 23 10/03/2022 COMPL ETE BLOOD COUNT AUTO DIFF hematocrit 44.3 % 34.0-4 6.6 normal Not Available [facility] (Lab) [address], [place], [address], 10/07/2022 18:03:36 10/04/19 23 10/03/2022 COMPL ETE BLOOD COUNT AUTO DIFF mean corpuscular volume 94 fL 79-[address] [facility] (Lab) [address], [place], [address], 10/07/2022 18:03:36 10/04/19 23 10/03/2022 COMPL ETE BLOOD COUNT AUTO DIFF mean corpuscular hemoglobin 30.9 pg 26.6-3 3.0 normal Not Available [facility] (Lab) [address], [place], [address], 10/07/2022 18:03:36 10/04/19 23 10/03/2022 COMPL ETE BLOOD COUNT AUTO DIFF mean corpuscular HGB conc 33.0 g/dL 31.5-3 5.7 normal Not Available [facility] (Lab) [address], [place], [address], 10/07/2022 18:03:36 10/04/19 23 10/03/2022 COMPL ETE BLOOD COUNT AUTO DIFF red cell distribution width 13.3 % 11.5-1 4.5 normal Not Available [facility] (Lab) [address] [place], [address], 10/07/2022 18:03:36 10/04/19 23 10/03/2022 COMPL ETE BLOOD COUNT AUTO DIFF platelet count 219 x10e3 /uL 150-45 0 normal Not Available [facility] (Lab) [address] [facility], [place], [address], 10/07/2022 18:03:36 10/04/19 23 10/03/2022 COMPL ETE BLOOD COUNT AUTO DIFF mean platelet volume 11.8 fL 8.9-12 .7 normal Not Available [facility] (Lab) [address] [facility], [place], [address], 10/07/2022 18:03:36 10/04/19 23 10/03/2022 COMPL ETE BLOOD COUNT AUTO DIFF immature granulocytes pct auto 0.2 % not estb. Not Available [facility] (Lab) [address] [facility], [place], [address], 10/07/2022 18:03:36 10/04/19 23 10/03/2022 COMPL ETE BLOOD COUNT AUTO DIFF neutrophils percent auto 42 % not estb. Not Available [facility] (Lab) [address] [facility], [place], [address], 10/07/2022 18:03:36 10/04/19 23 10/03/2022 COMPL ETE BLOOD COUNT AUTO DIFF lymphocytes percent auto 51 % not estb. Not Available [facility] (Lab) [address] [place], [address], 10/07/2022 18:03:36 10/04/19 23 10/03/2022 COMPL ETE BLOOD COUNT AUTO DIFF monocytes percent auto 5 % not estb. Not Available [facility] (Lab) [address] [place], [address], 10/07/2022 18:03:36 10/04/19 23 10/03/2022 COMPL ETE BLOOD COUNT AUTO DIFF eosinophils percent auto 1 % not estb. Not Available [facility] (Lab) [address] [place], [address], 10/07/2022 18:03:36 10/04/19 23 10/03/2022 COMPL ETE BLOOD COUNT AUTO DIFF basophils percent auto 0 % not estb. Not Available [facility] (Lab) [address] [place], [address], 10/07/2022 18:03:36 10/04/19 23 10/03/2022 COMPL ETE BLOOD COUNT AUTO DIFF neutrophils absolute auto 3.8 x10e3 /uL 1.4-7. 0 normal Not Available [facility] (Lab) [address] [facility], [place], [address], 10/07/2022 18:03:36 10/04/19 23 10/03/2022 COMPL ETE BLOOD COUNT AUTO DIFF immature granulocytes abs auto 0.0 x10e3 /uL 0.0-0. 1 normal Not Available [facility] (Lab) [address] [place], [address], 10/07/2022 18:03:36 10/04/19 23 10/03/2022 COMPL ETE BLOOD COUNT AUTO DIFF lymphocytes absolute auto 4.7 x10e3 /uL 0.7-3. 1 high Not Available [facility] (Lab) [address] [place], [address], 10/07/2022 18:03:36 10/04/19 23 10/03/2022 COMPL ETE BLOOD COUNT AUTO DIFF monocytes absolute auto 0.5 x10e3 /uL 0.1-0. 9 normal Not Available [facility] (Lab) [address] [place], [address], 10/07/2022 18:03:36 10/04/19 23 10/03/2022 COMPL ETE BLOOD COUNT AUTO DIFF eosinophils absolute auto 0.1 x10e3 /uL 0.0-0. 4 normal Not Available [facility] (Lab) [address] [place], [address], 10/07/2022 18:03:36 10/04/19 23 10/03/2022 COMPL ETE BLOOD COUNT AUTO DIFF basophils absolute auto 0.0 x10e3 /uL 0.0-0. 2 normal Not Available [facility] (Lab) [address] [place], [address], 10/07/2022 18:03:36 10/04/19 23 10/03/2022 COMPL ETE BLOOD COUNT AUTO DIFF nucleated red blood cells auto 0 % 0-0 normal Not Available [facility] ([facility]) [address] [facility], [place], [address], 10/07/2022 18:03:36 10/04/19 23 10/04/2022 BETO TIN ferritin 279 NG/mL 15-150 abnormal Perfo [place]med at: 01 [facility] [place] [address] Lab Direc tor: Fabio guzman PhD, Phone : [phone] Not Available [facility] (Lab) [address] [place], [address], 10/07/2022 18:03:38 10/04/19 23 10/04/2022 IRON AND TIBC iron bind.cap.(TI BC) 278 ug/dL 250-45 0 Not Available [facility] (Lab) [address] [place], [address], 10/07/2022 18:03:38 10/04/19 23 10/04/2022 IRON AND TIBC UIBC 138 ug/dL 131-42 5 Not Available [facility] (Lab) [address] [place], [address], 10/07/2022 18:03:38 10/04/19 23 10/04/2022 IRON AND TIBC iron 140 ug/dL 27-159 Not Available [facility] (Lab) [address] [place], [address], 10/07/2022 18:03:38 10/04/19 23 10/04/2022 IRON AND TIBC iron saturation 50 % 15-55 Not Available [facility] (Lab) [address], [place], [address], 10/07/2022 18:03:38 09/25/19 23 09/24/2022 XR, ankle , 3 or more view No observ ation record ed. [email or web address], [place], [address], 09/24/2022 14:08:10 09/26/19 23 09/24/2022 XR, ankle , 3 or more view No observ ation record ed. [address], [place], [address], 09/25/2022 14:01:37 11/09/19 23 11/08/2022 MAMMO , scree tiago, bilat eral No observ ation record ed. [address], [place], [address], 11/11/2022 16:19:19 Result Notes None recorded. Problems Name Problem SNOMED Code Status Onset Date Resolution Date Notes Provider Name and Address Organization Details Recorded Time [place] palsy of left side of face 479627202478 76423 Active 2017 Elma Suarez MA null, [place] - [facility] 8 14:58:30 Asthma 629614272 Completed 201712/04/2017 Elma Suarez MA null, [place] - [facility] 8 15:00:33 Type 2 diabetes mellitus 02771074 Active 2022 DAVID CARRION Attn: Alvin walsh,[address] [facility], [place], [address], [facility] - [facility] 3 15:37:54 Problem Notes None recorded. Procedures Surgical History Date Name Laterality Status Provider Name and Address Organization Details Recorded Time 3 Date of Last Mammogram completed Fransisca Cohcran [place] - [facility] 07/01/2024 09:44:24 Date of Last Pap Smear completed Fransisca Cochran MA [place] - [facility] 07/01/2024 09:44:13 Imaging Results None recorded. Procedure Notes None recorded. Medical Equipment None Reported. Allergies No known drug allergies Medications Name Sig Start Date Stop Date Status Note LastModified by Organization Details LastModified Time metformin 500 mg tablet Take 1 tablet every day by oral route for 30 days. 12/11 completed Not Available Not Available Not Available ibuprofen 800 mg tablet TAKE 1 TABLET BY MOUTH EVERY 6 HOURS NEEDED FOR PAIN . DO NOT EXCEED 4 EVERY 24 HOURS 08/02 completed Not Available Not Available Not Available meloxicam 15 mg tablet TAKE 1 TABLET BY MOUTH ONCE DAILY FOR 30 DAYS 08/02 completed Not Available Not Available Not Available simvastatin 10 mg tablet Take 1 tablet every day by oral route at bedtime for 30 days. 12/11 completed Not Available Not Available Not Available amoxicillin 500 mg tablet Take 1 tablet 3 times a day by oral route for 10 days. 10/11 completed Not Available Not Available Not Available amoxicillin 875 mg tablet TAKE 1 TABLET BY MOUTH TWICE DAILY UNTIL GONE 10/03 completed Not Available Not Available Not Available Polytrim 10,000 unit-1 mg/mL eye drops INSTILL 1 DROP INTO AFFECTED EYE(S) BY OPHTHALMI C ROUTE EVERY 4 HOURS x 7 days 02/09 completed Not Available Not Available Not Available montelukast 10 mg tablet Take 1 tablet every day by oral route for 90 days. 08/02 completed Not Available Not Available Not Available methylpredn isolone 4 mg tablets in a dose pack TAKE BY MOUTH DIRECTED ON INSIDE OF PACKAGE 08/02 completed Not Available Not Available Not Available doxycycline hyclate 20 mg tablet TAKE 1 TABLET BY MOUTH TWICE DAILY 07/23 completed Not Available Not Available Not Available fluticasone propionate 50 mcg/actuati on nasal spray,suspe nsion [place] 1 spray every day by intranasa l route for 90 days. 08/02 completed Not Available Not Available Not Available neomycin-po lymyxin-hyd rocort 3.5 mg-10,000 unit/mL-1 % ear drops,susp 12/26 completed Not Available Not Available Not Available amoxicillin 02/28 completed Not Available Not Available Not Available ibuprofen 02/28 completed Not Available Not Available Not Available Multi For Her 12/26 completed Not Available Not Available Not Available Vitals Date Recorded Body height Body mass index (BMI) Body weight Systolic blood pressure Diastolic blood pressure Provider Name and Address Organization Details Last Updated DateTime 08/02/2024 162.56 cm 24.5 kg/m2 65695.71 g 124 mm[Hg] 78 mm[Hg] Marianne Quintanilla MA [facility] 5 14:23:10 Date Recorded Body height Body mass index (BMI) Body weight Body temperature Heart rate Systolic blood pressure Diastolic blood pressure Provider Name and Address Organization Details Last Updated DateTime 3 162.56 cm 24.3 kg/m2 57149.6 8 g 98.6 [degF] 59 /min 121 mm[Hg] 80 mm[Hg] Shayla Sharpe MA [facility] 3 10:35:49 Date Recorded Body height Heart rate Body mass index (BMI) Body weight Body temperature Systolic blood pressure Diastolic blood pressure Provider Name and Address Organization Details Last Updated DateTime 3 162.56 cm 59 /min 24.3 kg/m2 84679.6 8 g 98.6 [degF] 121 mm[Hg] 80 mm[Hg] Ezequiel Cabrera MA [facility] 3 11:10:41 Date Recorded Body height Body mass index (BMI) Body weight Body temperature Heart rate Systolic blood pressure Diastolic blood pressure Provider Name and Address Organization Details Last Updated DateTime 3 162.56 cm 24 kg/m2 41882.5 7 g 97.5 [degF] 60 /min 131 mm[Hg] 82 mm[Hg] Ezequeil Cabrera MA [facility] 3 09:53:27 Date Recorded Body height Body mass index (BMI) Body weight Heart rate Body temperature Systolic blood pressure Diastolic blood pressure Provider Name and Address Organization Details Last Updated DateTime 3 162.56 cm 23.9 kg/m2 18859.7 8 g 62 /min 98.6 [degF] 139 mm[Hg] 88 mm[Hg] Shayla Sharpe [place] - [facility] 10:11:25 Social History Question Answer Notes LastModified by Organizat ion Details LastModified Time Tobacco Smoking Status Never Smoker Diandra Mccord, OTILIA null, [place] - [facility] 02/28/2017 14:52:57 Do You Have An Advance Directive? No Information n ot available 09/05/2022 In The 14 Days Before Symptom Onset, Have You Had Close Contact With A Laboratory-confirm ed COVID-19 While That Case Was Ill? No Information n ot available 09/05/2022 In The 14 Days Before Symptom Onset, Have You Had Close Contact With A Person Who Is Under Investigation For COVID-19 While That Person Was Ill? No Information not available 09/05/2022 Have You Been To An Area Known To Be High Risk For COVID-19? No Information not available 09/05/2022 What Is The Highest Grade Or Level Of School You Have Completed Or The Highest Degree You Have Received? [id number] Information not available 09/05/2022 Do You Have A Medical Power Of Trade Recruiter? No Information not available 09/05/2022 What Was The Date Of Your Most Recent Tobacco Screening? 08/02/2024 [email or web address] Information not available 08/02/2024 Are You Passively Exposed To Smoke? No Information no t available 09/05/2022 Sex: Female Functional Status Question Answer Note LastModified by Organizat ion Details LastModified Time Do you use any illicit or recreational drugs? No Information not available 12/26/2020 What is your level of alcohol consumption? None Information not available 12/26/2020 Are you currently employed? No Information not available 09/05/2022 Mental Status None recorded. Family History Relationship Description Onset Age of this Age Resolved Age Notes LastModified by Organization Details LastModified Time Mother Asthma [email or web address] Not available 1 14:59:53 Maternal Grandmother Asthma [email or web address] Not available 12/04 14:59:53 Medical History Condition Response Coronary Artery Disease N Other N High Blood Pressure N Atrial Fibrillation N Kidney or Bladder Problems N Thyroid Problems N GI Problems N Depression N COPD N Blood Clots N Skin Problems N Anemia N Heart Attack ([place]) N Anxiety Disorder N Diabetes N Muscle, Joint, or Bone Problems N Seizures/Epilepsy N Acid Reflux (GERD) N Cancer N Stroke N Asthma N Allergies Y High Cholesterol N Hepatitis N Liver Disease N Headaches N Heart Failure N Osteoporosis N Gynecological History Statement/Question Response Date of Last Pap Smear 12/26/2020 Current Control Method Menopause Date of Last Mammogram 11/08/2022 Date of LMP 08/30/2018 LMP Obstetrics History GPAL:G 6 P 3 1 2 3 Type Value Multiple Births 0 Full Term 3 Induced 2 Spontaneous 0 Premature 1 Living 3 Ectopics 0 Total 6 Immunizations Vaccine Type Date Status Note Provider Nam e and Address Organization Details Recorded Time COVID-19, mRNA, LNP-S, PF, 30 mcg/0.3 mL dose 05/30/2020 completed Not Available [facility] 14:11:00 Tdap 02/28/2017 completed Not Available [facility] 03/13/2019 02:41:33 Past Encounters Encounter ID Performer Location Encounter Start Date Encounter Closed Date Diagnosis/Indication Diagnosis SNOMED-CT Code Diagnosis ICD10 Code Diagnosis Note [id number] CHERELLE Santacruz NP [facility] [address] [place] [address] 02/28/2017 14:26:21 03/03/2017 10:58:16 HIV screening 017698992 Z11.4 Active or passive immunization 543236472 Z23 Acute sinusitis 78110520 J01.90 Start oral antibiotic . Zyrtec/luis nase as directed. F/u prn [place] pals y of left side of face 2545202867 0309853 G51.0 Start OTC lubricatin g eye drops Hyperlipid emia screening 342722568 Z13.220 Obtain labs. 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 given order to patient to schedule. [place] pals y of right side of face [id number] G51.0 facial weakness x 2 weeks diagnosed with bells palsy in ER after normal CT scan. Has been treated with steroids and antibiotic s. Start OTC lubricatin g eye drops. She denies TEJADA, chest pain, vision loss, weakness Adult heal th examination [id number] Z00.00 - mammogram- pap due next year- colonoscop y- labs today Screening colonoscopy 44 6931634 Z12.11 Has not had colonoscop y [id number] Miguel Agudelo MD [facility] [address] [place] [address] 12/11/2020 14:28:00 12/12/2020 09:41:25 Allergic rhinitis 05808976 J30.9 meds and follow up... Fatigue 80280249 R53.83 Screening mammography 24 820438 Z12.31 order [id number] DAVID GODINEZ [facility] [address] [place] [address] 12/26/2020 14:02:05 12/27/2020 13:00:47 Screening for malignant neoplasm of breast 242585149 Z12.39 last mammo 2018, no h/o abnormalsn o FH of breast/ova bhavna cancerPEx- breast exam nlgave order for mammo Screening for malignant neoplasm of cervix 476576397 Z12.4 last pap 2018, no h/o abnormalsL MP 6 yrs agoPEx- scarring to cervical os, unable to penetrate with nuswab/cer vical cytology brush, othwerise nlattempte d to obtain sampleinfo rmed pt, may need to see Trains Dispatcher Supervisor if sample comes back invalid [id number] DAVID CARRION [facility] [address] [place] [address] 07/17/2022 15:29:27 07/17/2022 16:33:15 Type 2 diabetes mellitus 63375099 E11.9 dx 2019 and did not follow uppatient given DM education today, risks with uncontroll ed DM, diet, exercise, medication sshe would like to manage with diet for one monthstart statin Foot exam: 06/2022Eye Exam: referral sentAlb/Cr : WNL 06/2022Stat in: elevated liver enzymes, hold offpneumon ia vaccine: next visit Pain of le ft ankle joint [id number] 7620082 M25.572 Plantar fa sciitis of right foot 9644100823 5621605 M72.2 taking naproxen Screening for malignant neoplasm of colon 763905265 Z12.11 Screen Screening mammography 24 084402 Z12.31 due for mammogram. given order to patient to schedule. [id number] Hodan Edwards DO [facility] [address] [place] [address] 09/05/2022 10:05:29 09/09/2022 07:30:31 Liver enzymes level above reference range 917808301 R74.01 Encouraged patient to complete liver US ordered by PCP. Pending lab work and liver US, may proceed with fibroscan. 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 Recheck and rule out iron overload. Liver enzy mes level above reference range 353350428 R74.01 Proceed with liver US and fibroscan. [id number] BARBARA TENA DPM [facility] [address] [place] [address] 10/16/2022 09:59:51 10/22/2022 15:23:41 Peroneal tendinitis of left lower limb 0701988059 20517 M76.72 Discussed stretching exercises in detailDisc ussed inserts and importance of wearing supportive shoes poserstep insoles rx meloxicam order ASO brace. 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 Last mammogram done in 2022 was normal. She is due for repeat screening mammogram. No abnormal breast findings on exam.Plan: Ordering screening mammogram bilateral Gynecologi c examination 64295396 Z01.419 58 y/o female w/ T2DM. Patient has no acute concerns. Breast exam and pelvic exam were normal. Last pap smear done in 2020 was normal. 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 No complaints of mood symptomsPl an: Continue to monitor Body mass index 20-24 - normal 689995923 Z68.24 BMI: 24.5. Patient is normal weight and has no related concernsPl an: Continue to monitor Health Concerns Section Related Observation LastModified by Organization Detai ls LastModified Time None Recorded Concern Status LastModified by Organization Details LastModified Time None Recorded Advance Directives Directive N: Payers Insurance Date Sequence Insurance Name Policy Number Policy Freedman Covered Member ID Freedman Member ID Guarantor Name 08/03/2024 [facility] Johanna Castillo [id number] Johanna Castillo 09/27/2019 SLIDING FEE SCHEDULE - DISCOUNT Johanna Castillo 08/05/2024 [facility] (MEDICAID HMO) [id number] Johanna Castillo [id number] Johanna Castillo 06/13/2022 SLIDING FEE SCHEDULE - DISCOUNT Johanna Castillo 12/04/2017 SLIDING FEE SCHEDULE - DISCOUNT Johanna Castillo 06/13/2022 1 *SELF PAY* To terri Castillo 08/03/2024 1 [place] Johanna Castillo [id number] Johanna Jonathan Notes Date Note Type Note Provider Name and Address Organization Details Recorded Time 3 text/html Patient presents to office right left heel pain. Patient relates the left heel has been tender for the past several months. Patient denies injury or trauma. Patient relates pain is increased when first steps down in the AM or after a prolong sit. Patient relates stretching and stiffer shoes help a little. Patient has has not tried inserts. Patient has attempted stretching, icing, changes in shoes, inserts, rest, soaks, antiiinflammatories Patient states that the pain is a 6/10, sharp in naturerelates pain to the outside of the left ankle and swelling to the ankle, that causes her to limpshe works in a warehousedid wear a lot of heels when she was youngerpresents with daughter who does translate BARBARA TENA DPM [address] [place], [address], [facility] 09/25/2022 11:55:05 3 text/html DM since a few weeks./ NO comp.H/O B/L [place] palsy. (subsequent) Diogenes Oconnell MD [address] [place], [address], [facility] 09/25/2022 13:47:49 3 text/html Patient presents today for follow up of regarding labwork for elevated LFTs. No symptom change since last visit. Has not done liver US, previously ordered by PCP. STEFANIA HERNANDEZ [address] [place], [address], [facility] 10/03/2022 10:33:34 3 text/html Patient presents to office right left heel pain. Patient relates the left heel has been tender for the past several months. Patient denies injury or trauma. Patient relates pain is increased when first steps down in the AM or after a prolong sit. Patient relates stretching and stiffer shoes help a little. Patient has has not tried inserts. Patient has attempted stretching, icing, changes in shoes, inserts, rest, soaks, antiiinflammatories Patient states that the pain is a 2/10, sharp in naturerelates pain to the outside of the left ankle and swelling to the ankle, States that it has been doing a lot better has been doing the stretches, is getting the brace today, did take hte medication BARBARA TENA DPM [address] [place], [address], [facility] 10/16/2022 10:24:35 5 text/html HPI: Patient is a 58 y/o female with a PMH of T2DM. She is here for annual plant machinist exam. She has no concerns today. She last had a mammogram in 2022, which was normal. She had a pap smear in 2020, which was normal. She denies breast masses, breast discharge, bleeding, vaginal discharge, or vaginal bleeding. Clem Raymundo MD Attn: Accounting,[address] [place], [address], [facility] 08/02/2024 15:49:25 OBGyn Episode No OBEpisode recorded.
== END 2024-08-05 15:40 | disposition home or self-care (01) ==
LOC: ANHIMG 15:41
PROVIDERS: PCP Physician Assistant; Visit Provider Physician Assistant
DX: Z12.31 Encounter for screening mammogram for malignant neoplasm of breast (principal)
CPT/HCPCS: 77063; 77067